=== PATIENT | female | born 1985 | race Caucasian/White ===

== ENCOUNTER 2018-10-16 09:02 | Emergency (ER) | payer OTHER ==
[~2018-10-16] VITALS: Ht 162.6 cm; Wt 83.9 kg
[2018-10-16] MEDS ORDERED: NEOMYCIN-POLY-G10 ML (09:22)
== END 2018-10-16 15:42 | disposition home or self-care (01) ==
LOC: ER 09:02
DX: S05.11XA Contusion of eyeball and orbital tissues, right eye, initial encounter (principal); W22.8XXA Striking against or struck by other objects, initial encounter; Y93.89 Activity, other specified; Y92.89 Other specified places as the place of occurrence of the external cause; Y99.8 Other external cause status

== ENCOUNTER → 2019-10-18 | Outpatient (CLI) | payer OTHER ==
[~2019-10-18] MED LIST: NEOMYCIN-POLY-G10 ML
== END | disposition home or self-care (01) ==
LOC: PRENATAL 14:00
DX: O36.80X1 Pregnancy with inconclusive fetal viability, fetus 1 (principal); O34.211 Maternal care for low transverse scar from previous cesarean delivery; O09.521 Supervision of elderly multigravida, first trimester

== ENCOUNTER → 2019-12-07 | Outpatient (CLI) | payer OTHER | END | disposition home or self-care (01) | LOC: PRENATAL 13:00 | PROVIDERS: ATTEND Obstetrics & Gynecology Maternal & Fetal Medicine | DX: O35.3XX1 Maternal care for (suspected) damage to fetus from viral disease in mother, fetus 1 (principal); O35.0XX1 Maternal care for (suspected) central nervous system malformation in fetus, fetus 1; O34.211 Maternal care for low transverse scar from previous cesarean delivery; O98.512 Other viral diseases complicating pregnancy, second trimester; O09.522 Supervision of elderly multigravida, second trimester; Z36.89 Encounter for other specified antenatal screening; Z3A.19 19 weeks gestation of pregnancy ==

== ENCOUNTER → 2020-03-27 | Outpatient (CLI) | payer OTHER | END | disposition home or self-care (01) | LOC: PRENATAL 10:30 | PROVIDERS: ATTEND Obstetrics & Gynecology Maternal & Fetal Medicine | DX: O26.843 Uterine size-date discrepancy, third trimester (principal); O36.8131 Decreased fetal movements, third trimester, fetus 1; Z36.89 Encounter for other specified antenatal screening; Z3A.35 35 weeks gestation of pregnancy ==

== ENCOUNTER 2020-09-22 01:50 | Emergency (ER) | payer OTHER ==
[~2020-09-22] VITALS: Ht 172.7 cm; Wt 81.6 kg
[2020-09-22] MEDS ORDERED: PHENYLEPHRINE HC (02:04)
[2020-09-22] MEDS ORDERED: MUPIROCIN22 GM TOP (05:15)
[2020-09-22] MEDS ORDERED: CEPHALEXIN500 M1 PO (05:15)
== END 2020-09-22 05:29 | disposition home or self-care (01) ==
LOC: ER 01:50
DX: L08.89 Other specified local infections of the skin and subcutaneous tissue (principal)

== ENCOUNTER → 2022-01-04 | Emergency (ER) | payer OTHER ==
[~2022-01-04] VITALS: Ht 152.4 cm; Wt 88.0 kg
[~2022-01-04] MED LIST changes: +CEPHALEXIN500 M1 PO; +MUPIROCIN22 GM TOP; +PHENYLEPHRINE HC
== END | disposition home or self-care (01) ==
LOC: ER 09:51
DX: B34.9 Viral infection, unspecified (principal); Z20.822 Contact with and (suspected) exposure to COVID-19

== ENCOUNTER 2022-03-22 15:40 | Outpatient (CLI) | payer OTHER | END 2022-03-22 15:50 | disposition home or self-care (01) | LOC: PPH VACUNA 15:40 | PROVIDERS: ATTEND Emergency Medicine Pediatric Emergency Medicine | DX: Z23 Encounter for immunization (principal) ==

== ENCOUNTER 2023-03-24 11:13 | Outpatient (CLI) | payer OTHER | END 2023-03-24 11:23 | disposition home or self-care (01) | LOC: RAD 11:13 | DX: M79.672 Pain in left foot (principal) ==